=== PATIENT | male | born 1940 | race Caucasian/White ===

== ENCOUNTER 2018-08-16 08:16 | Day surgery (SDC) | payer MEDICARE ==
[~2018-08-16] VITALS: Ht 322.6 cm; Wt 80.7 kg
[~2018-08-16 08:16] MED LIST: ADULT LOW DOSE81 MG PO; DOXAZOSIN MESYLA1 MG PO; METOPROLOL TART50 MG PO; MULTIVITAMINS1 EAC7 PO; ZOCOR40 MG PO
--- NOTE | 2018-08-16 09:53 | NUR ---
08/16/18 0953 Mary Mendez 0944 PT TO PACU ON O2 MASK EXP WHEEZES HEARD CLEAR WITH DEEP BREATH AND COUGH
--- NOTE | 2018-08-17 06:22 | OR ---
[facility] [address], [place] [address] Signed DATE OF OPERATION: 08/16/2018 SURGEON: Derrick Guillermo MD PREOPERATIVE DIAGNOSES: 1. Personal history of colorectal polyps. 2. Internal and external hemorrhoids. 3. Diverticulosis. POSTOPERATIVE DIAGNOSES: 1. Plmnkpr-ri-pntrwwib sigmoid diverticulosis. 2. Moderate melanosis coli. 3. Minimal internal and external hemorrhoids. 4. Indurated prostate. PROCEDURE: Colonoscopy without biopsy. ESTIMATED BLOOD LOSS: None. INDICATIONS: Shantelle is an 78-year-old gentleman who has had an adenomatous polyp removed from his rectum back in 2007. He is also known to have some internal and external hemorrhoids. He had a repeat colonoscopy in 2012 and hyperplastic polyps were removed along with observation of the hemorrhoids and his diverticulosis. Shantelle quit smoking 18 years ago, and he does have COPD. However, he does get around quite well. He does drive himself in and out of town 15 miles and consequently he is pretty active. He still maintains good muscle mass for his age. 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 Consequently, we gave him preoperative antibiotics today. He came back in the office, I was asked me about followup colonoscopy. We had a very long discussion regarding colorectal polyps to become a cancer over 8-12 years. We also discussed his age in detail. He felt strongly that he wanted to undergo another colonoscopy at age 78, and it would probably be his last one. He told me there is no family history of colon cancer or polyps. He did not mention any lower GI complaints. I had given him a pamphlet on colonoscopy and we had reviewed that together. He understands the nature of that test along with its risks including, but not limited to gas, bloating, crampy abdominal pain, bleeding, perforation, requiring surgery, and missed diagnosis. He also understands the need for IV conscious sedation. He had expressed understanding and wished to proceed. Electronically Signed By: DERRICK GUILLERMO MD 08/17/18 0622 PATIENT NAME: SHANTELLE CHIANG OPERATIVE REPORT DATE OF : 36 REPORT #: [id number] PHYSICIAN: DERRICK GUILLERMO MD PCP: JU PARTIDA MD REPORT IS CONFIDENTIAL AND NOT TO BE RELEASED WITHOUT AUTHORIZATION [facility] [address], [place] [address] Signed PROCEDURE NOTE: Shantelle was taken into our endoscopy suite and placed in the left lateral decubitus position. Before his sedation, he was telling me about some bleeding from the rectum. He thinks there is a hemorrhoid that needs to be removed. Shantelle was given 2 mg of Versed and 100 mcg of fentanyl to cover the whole case. A digital rectal exam was performed and he does not have much in the way of external hemorrhoids. They are quite small. He has good sphincter tone. His prostate is slightly enlarged and indurated. The adult colonoscope was introduced and advanced under direct visualization of camera up into the cecum itself without difficulty. His prep was quite excellent. He has a classic tiger striping throughout his colon and rectum consistent with laxative use. He really should consider a fiber product along with MiraLAX. We could see his diverticula. They are moderate in size, minimal to moderate in number, and scattered about through the sigmoid colon. Back in the rectum, the scope had been retroflexed and he really has quite minimal internal hemorrhoid tissue. After this, the gas was suctioned out and colonoscope removed. Shantelle tolerated the procedure quite well. RECOMMENDATIONS: Shantelle can follow up in my office as needed for future colonoscopies. If he wants to undergo anoscopy and possible banding hemorrhoids, he is welcome to come in the office and review that in the weeks ahead. Otherwise, we are going to release him from care. Derrick Guillermo MD ALB/MODL /[id number] cc: MD Ju Ralph MD Copies: DERRICK GUILLERMO MD Electronically Signed By: DERRICK GUILLERMO MD 08/17/18 0622 PATIENT NAME: SHANTELLE CHIANG OPERATIVE REPORT DATE OF : 36 REPORT #: [id number] PHYSICIAN: DERRICK GUILLERMO MD PCP: JU PARTIDA MD REPORT IS CONFIDENTIAL AND NOT TO BE RELEASED WITHOUT AUTHORIZATION [facility] [address] [facility] [place] [address] Signed JU PARTIDA MD ~ Electronically Signed By: DERRICK GUILLERMO MD 08/17/18 0622 PATIENT NAME: SHANTELLE CHIANG JEREMY OPERATIVE REPORT DATE OF : 36 REPORT #: [id number] PHYSICIAN: DERRICK GUILLERMO MD PCP: JU PARTIDA MD REPORT IS CONFIDENTIAL AND NOT TO BE RELEASED WITHOUT AUTHORIZATION
== END 2018-08-16 10:42 | disposition home or self-care (01) ==
LOC: DS 08:16 → OPS 08:16 → DS 09:45 → OPS 10:42
PROVIDERS: Colon & Rectal Surgery
PROC: 0DJD8ZZ Inspection of Lower Intestinal Tract, Via Natural or Artificial Opening Endoscopic (ICD-10-PCS; principal; 2018-08-16 09:45)
DX: Z12.11 Encounter for screening for malignant neoplasm of colon (principal); K57.30 Diverticulosis of large intestine without perforation or abscess without bleeding; K64.8 Other hemorrhoids; K64.4 Residual hemorrhoidal skin tags; N42.89 Other specified disorders of prostate; K62.89 Other specified diseases of anus and rectum; I25.10 Atherosclerotic heart disease of native coronary artery without angina pectoris; I12.9 Hypertensive chronic kidney disease with stage 1 through stage 4 chronic kidney disease, or unspecified chronic kidney disease; N18.9 Chronic kidney disease, unspecified; E78.5 Hyperlipidemia, unspecified; R73.03 Prediabetes; Z98.890 Other specified postprocedural states; Z87.891 Personal history of nicotine dependence; Z79.82 Long term (current) use of aspirin; Z79.899 Other long term (current) drug therapy
CPT/HCPCS: 99153; G0500; J2250; J3010; J7120

== ENCOUNTER 2023-07-15 00:51 | Observation (INO) | payer MEDICARE ==
[~2023-07-15] VITALS: Ht 167.6 cm; Wt 82.5 kg
--- NOTE | ~2023-07-15 | EKG ---
[facility] [address] [facility] [place], [place] [address] Draft EKG completed, results pending confirmation PATIENT NAME: SHANTELLE CHIANG JEREMY Electrocardiogram DATE OF : 36 PHYSICIAN: PRELIMINARY REPORT #: [id number] REPORT IS CONFIDENTIAL AND NOT TO BE RELEASED WITHOUT AUTHORIZATION
[~2023-07-15 00:51] MED LIST changes: +FENOFIBRIC ACID45 MG PO; +PREDNISONE20 MG PO; +ZITHROMAX250 MG PO
[2023-07-15 01:05] LABS: BASOPHILS 0.4 % (0-2); HEMATOCRIT 41.9 % (35.0-50.0); HEMOGLOBIN 13.9 g/dL (12.0-18.0); LYMPHOCYTES 15.6 % (24-44); MCH 32.3 (27-36); MCHC 33.1 g/dl (30-36); MCV 97.6 fl (81-99); MONOCYTES 8.1 % (0-12); NEUTROPHILS 71.9 % (39-80); PLATELET COUNT 237 K/uL (140-440); RBC 4.29 M/ul (4.3-5.7); RDW 13.5 (10.5-15.0)
[2023-07-15 01:40] LABS: ALBUMIN 3.7 g/dL (3.4-5.0); ALBUMIN/GLOBULIN RATIO 1.03 (1.1-2.4); ANION GAP 15.5 (7-21); BILIRUBIN, TOTAL 0.5 ng/dL (0.2-1.0); BUN/CREATININE RATIO 14.38 (6.0-28.6); CALCIUM 8.4 mg/dL (8.5-10.1); CREATININE, SERUM 1.39 mg/dL (0.70-1.30); POTASSIUM 4.5 mmol/L (3.5-5.1); PROTEIN, TOTAL 7.3 g/dL (6.4-8.2)
[2023-07-15 01:59] LABS: INFLUENZA B NAA NEGATIVE (NEGATIVE); RESPIRATORY SYNCYTIAL VIR NAA NEGATIVE (NEGATIVE)
--- NOTE | 2023-07-15 04:35 | NUR ---
Patient transferred from ED to Medical floor via gurney with 2 liteers/NC. Patient in no distress, RR even and unlabored. Report provided by ED-RN. VSS, oriented to room, admission assessment complete, RT in and breathing tx done, Ap reg, no noted edema, lungs with with scattered expiratory wheeze, IV saline locked, intact and dry. call light within reach.
[2023-07-15 04:38] VITALS: BP 158/63
--- NOTE | 2023-07-15 05:16 | NUR ---
Patient voided without difficulty, Resting in bed, no distress noted, lights are out and patient watching TV. call light within reach.
--- NOTE | 2023-07-15 06:30 | NUR ---
Patient remains awake, watching TV, Denies any needs, appears comfortable, no noted distress, RR even and unlabored, call light within reach.
--- NOTE | 2023-07-15 09:10 | NUR ---
RECIEVED REPORT FROM NURSE AT 0710. PT WAS ASLEEP WITH EYES CLOSED AND EVEN UNLABORED BREATHING NOTED. CURRENTLY IS AWAKE AND HAS A VISITOR IN ROOM. MEDS GIVEN ASSESSMENT COMPLETE. EXPIRATORY WHEEZE NOTED. NO OTHER ABNORMALITES FROM LAST ASSESSMENT. 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 NO OTHER CARES NEEDED OR REQUESTED AT THIS TIME. CALL LIGHT WITHIN REACH
--- NOTE | 2023-07-15 09:16 | EKG ---
[facility] [address] [facility] [place] [address] Signed Normal sinus rhythm Nonspecific T wave abnormality Abnormal ECG When compared with ECG of 15-JUL-2023 01:08, (Unconfirmed) Nonspecific T wave abnormality has replaced inverted T waves in Anterior leads Confirmed by ANGELICA RANDALL MD ([id number]) on 07/15/2023 9:16:14 AM Electronically Signed By: ANGELICA RANDALL 07/15/23 0916 PATIENT NAME: АНДРЕЙSHANTELLEAimee LUNA Electrocardiogram DATE OF : 36 PHYSICIAN: ANGELICA RANDALL REPORT #: [id number] REPORT IS CONFIDENTIAL AND NOT TO BE RELEASED WITHOUT AUTHORIZATION
--- NOTE | 2023-07-15 11:18 | NUR ---
PT IS CURRENTLY IN BED RESTING WITH EYES CLOSED AND EVEN UNLABORED BREATHING NOTED. CALL LIGHT WITHIN REACH
--- NOTE | 2023-07-15 12:35 | NUR ---
PT CURRENTLY AWAKE A+O EATING LUNCH AND WATCHING TELEVISION. NO REQUESTS OR CARES NEEDED AT THIS TIME. CALL LIGHT WITHIN REACH
[2023-07-15 13:17] VITALS: BP 123/41
--- NOTE | 2023-07-15 15:30 | NUR ---
PT IS CURRENTLY IN BED WATCHING TELEVISION. REPIRATORY THERAPIST INFORMED ME THAT PT IS CURRENTLY ON RA AT 95% AND TOLERATING WELL. NO OTHER CARES NEEDED OR REQUESTED AT THIS TIME CALL LIGHT WITHIN REACH
--- NOTE | 2023-07-15 16:11 | NUR ---
Patient would like [facility] for home O2 provider. Discussed with patient that [facility] will not open until Monday, but [facility] is available on weekends, patient states he would still like to go through [facility].
[2023-07-15 18:39] VITALS: BP 123/69
--- NOTE | 2023-07-15 19:15 | NUR ---
REPORT RECIEVED FROM ALEJA GREEN. pt RESTING IN THE BED. pt REQUESTING A CUP OF COFFEE. pt DENIES ANY OTHER NEEDS AT THIS TIME. CALL LIGHT WITHIN REACH.
[2023-07-15 21:12] VITALS: BP 136/49
--- NOTE | 2023-07-15 21:25 | NUR ---
ASSESSMENT AND VITAL SIGNS DONE. EXPIRATORY WHEEZES WITH AUSCULTATION. SCHEDULED MEDICATION ADMINISTERED, SEE AUG. BG CHECKED, 168. SS INSULIN ADMINISTERED, SEE MAR. A&O X4. pt DENIES ANY OTHER NEEDS AT THIS TIME. CALL LIGHT WITHIN REACH.
--- NOTE | 2023-07-15 22:30 | NUR ---
CPOX PLACED ON pt TO MONITOR O2 SATURATION THROUGHOUT THE NIGHT. pt SATTING AT 87% ON RA. 1LNC PLACED ON pt. O2 SATURATION INCREASED TO 92%. SCHEDULED MEDS ADMINISERED, SEE MAR. pt DENIES ANY OTHER NEEDS AT THIS TIME.
--- NOTE | 2023-07-16 00:10 | NUR ---
pt RESTING IN THE BED WITH EYES CLOSED. O2 SATURATION AT 93% ON 1LNC. CALL LIGHT WITHIN REACH.
[2023-07-16 01:53] VITALS: BP 118/47
--- NOTE | 2023-07-16 02:15 | NUR ---
ASSESSMENT DONE. EPIRATORY WHEEZES. VSS. O2 SATURATION AT 92% AT 1LNC. pt DENIES ANY OTHER NEEDS AT THIS TIME.
--- NOTE | 2023-07-16 04:16 | NUR ---
pt SITTING IN THE BED. O2 SATURATION AT 94% ON 1LNC. pt DENIES ANY NEEDS AT THIS TIME. CALL LIGHT WITHIN REACH.
[2023-07-16 04:59] VITALS: BP 144/60
[2023-07-16 05:28] LABS: BASOPHILS 0.2 % (0-2); LYMPHOCYTES 6.9 % (24-44); MONOCYTES 3.8 % (0-12)
[2023-07-16 05:33] LABS: HEMATOCRIT 38.2 % (35.0-50.0); HEMOGLOBIN 12.9 g/dL (12.0-18.0); MCH 32.4 (27-36); MCHC 33.6 g/dl (30-36); MCV 96.3 fl (81-99); NEUTROPHILS 89.1 % (39-80); PLATELET COUNT 214 K/uL (140-440); RBC 3.97 M/ul (4.3-5.7); RDW 13.3 (10.5-15.0)
[2023-07-16 05:40] LABS: ANION GAP 15.7 (7-21); BUN/CREATININE RATIO 17.28 (6.0-28.6); CALCIUM 8.5 mg/dL (8.5-10.1); CREATININE, SERUM 1.62 mg/dL (0.70-1.30); POTASSIUM 4.7 mmol/L (3.5-5.1)
--- NOTE | 2023-07-16 06:31 | NUR ---
SCHEDULED MEDS ADMINISTERED, SEE MAR. O2 TITRATED DOWN TO 2LNC. pt O2 SATURATION AT 94%. pt GOT FRESH CUP OF COFFEE. pt DENIES ANY OTHER NEEDS AT THIS TIME. CALL LIGHT WITHIN REACH.
--- NOTE | 2023-07-16 06:51 | NUR ---
DR. RANDALL ON MED/SURG FLOOR. UPDATED ON pt NIGHT AND O2 NEED. NEW VERBAL ORDER GIVEN AND REPEATED BACK FOR STAT CHEST XRAY. ORDER PLACED.
--- NOTE | 2023-07-16 08:52 | NUR ---
MORNING ASSESSMENT IS COMPLETE. PATIENT IS SITTING UP IN BED FOR BREAKFAST. 2L VIA NC FOR SATS 92-95%. 1UNIT OF INSULIN FOR BG OF 157. IV ROCEPHIN IS INFUSING. NO OTHER NEEDS AT THIS TIME.
[2023-07-16 09:28] VITALS: BP 119/65
--- NOTE | 2023-07-16 09:40 | NUR ---
IV ZITHROMAX INFUSING FOR ONE HOUR. PATIENT IS MAINTAINING ON ROOM AIR 90-91% PATIENT INDICATED THAT RT WOULD BE IN TO O2 QUALIFY LATER.
--- NOTE | 2023-07-16 11:07 | NUR ---
IV ABX STILL INFUSING, R/T IV PLACEMENT, BUT NEARLY COMPLETE. PATIENT IS ON ROOM AIR 93% AT REST.
[2023-07-16] MEDS ORDERED: AMOX TR-K CLV1 EACH PO (14:10)
[2023-07-16] MEDS ORDERED: AZITHROMYCIN250 MG PO (14:10)
[2023-07-16 14:31] VITALS: BP 150/72
[2023-07-16] MEDS ORDERED: CRESTOR10 MG (14:37)
--- NOTE | 2023-07-16 14:37 | NUR ---
DISCHARGE INSTRUCTIONS REVIEWED WITH PATIENT.
[2023-07-16] MEDS ORDERED: CARDURA1 MG PO (14:46)
[2023-07-16] MEDS ORDERED: TRELEGY ELLIPT1 EAC1 INH (14:47)
[2023-07-16] MEDS ORDERED: COZAAR25 MG PO (14:47)
[2023-07-16] MEDS ORDERED: COMBIVENT RESPIM4 GM INH (14:50)
[2023-07-16] MEDS ORDERED: FENOFIBRIC ACID45 MG PO (14:50)
[2023-07-16] MEDS ORDERED: CRESTOR10 MG PO (14:52)
--- NOTE | 2023-07-17 13:27 | NUR ---
Message from Johnson at [facility] stating need for RX on pt that dcd over the weekend for 02. They did fill the Order. H&P, DC summary, face sheet, 02 qualifier, and RX faxed.
== END 2023-07-16 14:40 | disposition home or self-care (01) ==
LOC: ED 00:51 → MS 00:53
PROVIDERS: Family Medicine; ADMIT Internal Medicine; ATTEND Internal Medicine
DX: J44.1 Chronic obstructive pulmonary disease with (acute) exacerbation (principal); I10 Essential (primary) hypertension; E11.9 Type 2 diabetes mellitus without complications; Z79.899 Other long term (current) drug therapy; Z79.82 Long term (current) use of aspirin
CPT/HCPCS: 36415; 71045; 80048; 80053; 83880; 84484; 85025; 85060; 87502; 93005; 93010; 94640; 94760; 94761; 96365; 96367; 96374; 96375; 96376; 99285-25; A9270; G0378; J0456; J0696; J1815; J2270; J2920; J2930; J7060; U0002

== ENCOUNTER 2023-12-31 12:54 | Emergency (ER) | payer MEDICARE ==
[~2023-12-31] VITALS: Ht 167.6 cm; Wt 80.0 kg
[~2023-12-31 12:54] MED LIST changes: +AMOX TR-K CLV1 EACH PO; +AZITHROMYCIN250 MG PO; +CARDURA1 MG PO; +COMBIVENT RESPIM4 GM INH; +COZAAR25 MG PO; +CRESTOR10 MG; +CRESTOR10 MG PO; +TRELEGY ELLIPT1 EAC1 INH
[2023-12-31 13:08] LABS: PH, VENOUS 7.375 (7.31-7.41)
[2023-12-31] MEDS ORDERED: FORMOTEROL20 MCG/2 M IH (13:09)
[2023-12-31 13:12] LABS: BASOPHILS 0.5 % (0-2); EOSINOPHILS 3.9 % (0-6); HEMATOCRIT 44.4 % (35.0-50.0); HEMOGLOBIN 14.3 g/dL (12.0-18.0); LYMPHOCYTES 19.3 % (24-44); MCH 31.7 (27-36); MCHC 32.3 g/dl (30-36); MCV 98.1 fl (81-99); MONOCYTES 7.9 % (0-12); NEUTROPHILS 68.4 % (39-80); PLATELET COUNT 204 K/uL (140-440); RBC 4.53 M/ul (4.3-5.7); RDW 13.8 (10.5-15.0)
[2023-12-31] MEDS ORDERED: methylPREDNISolone SOD SUCC 125 MG/2 ML VIAL IV ONE (13:15)
[2023-12-31] MEDS ORDERED: ALBUTEROL/IPRATROPIUM 3 ML NEB INH ONE ×3 (13:15→15:45)
[2023-12-31 13:40] LABS: ALBUMIN 3.8 g/dL (3.4-5.0); ALBUMIN/GLOBULIN RATIO 1.27 (1.1-2.4); ANION GAP 12.4 (7-21); BILIRUBIN, TOTAL 0.4 ng/dL (0.2-1.0); BUN/CREATININE RATIO 9.32 (6.0-28.6); CALCIUM 9.1 mg/dL (8.5-10.1); CREATININE, SERUM 1.18 mg/dL (0.70-1.30); POTASSIUM 4.4 mmol/L (3.5-5.1); PROTEIN, TOTAL 6.8 g/dL (6.4-8.2)
[2023-12-31] MEDS ORDERED: ZITHROMAX TRI-500 MG PO (16:10)
[2023-12-31] MEDS ORDERED: PREDNISONE50 MG PO (16:10)
[2023-12-31 16:23] VITALS: BP 108/53
--- NOTE | 2024-01-01 16:06 | EKG ---
[facility] [address] [facility] [place], [place] [address] Signed Normal sinus rhythm ST \T\ T wave abnormality, consider lateral ischemia Abnormal ECG Confirmed by ANGELICA RANDALL MD ([id number]) on 01/01/2024 4:06:20 PM Electronically Signed By: ANGELICA RANDALL 01/01/24 1606 PATIENT NAME: SHANTELLE CHIANG Electrocardiogram DATE OF : 36 PHYSICIAN: ANGELICA RANDALL REPORT #: [id number] REPORT IS CONFIDENTIAL AND NOT TO BE RELEASED WITHOUT AUTHORIZATION
== END 2023-12-31 16:30 | disposition home or self-care (01) ==
LOC: ED 12:54
PROVIDERS: Emergency Medicine
DX: J44.1 Chronic obstructive pulmonary disease with (acute) exacerbation (principal); I10 Essential (primary) hypertension; Z87.891 Personal history of nicotine dependence; Z79.82 Long term (current) use of aspirin; Z79.899 Other long term (current) drug therapy
CPT/HCPCS: 36415; 71045; 80053; 82803; 84484; 85025; 93005; 93010; 94640; 94799; 96374; 99285; J2919